=== PATIENT | male | born 1955 | race Caucasian/White ===

== ENCOUNTER 2019-07-21 12:39 | Emergency (ER) | payer BC ==
[2019-07-21 14:20] LABS: BASOPHILS % (AUTO) 0.5 %; EOSINOPHILS % (AUTO) 0.3 %; HGB - HEMOGLOBIN 14.7 g/dL (14.0-18.0); LYMPHOCYTES # (AUTO) 1.5 10^3/uL (1.5-3.5); LYMPHOCYTES % (AUTO) 19.7 %; MEAN CORPUSCULAR HEMOGLOBIN 30.9 pg (27.0-31.0); MEAN CORPUSCULAR HGB CONC 34.6 g/dL (32.0-36.0); MEAN CORPUSCULAR VOLUME 89.5 fL (80.0-94.0); MONOCYTES # (AUTO) 0.5 10^3/uL (0.0-1.0); MONOCYTES % (AUTO) 6.5 %; NEUTROPHILS # (AUTO) 5.4 10^3/uL (1.5-6.6); NEUTROPHILS % (AUTO) 72.7 %; PLT - PLATELET COUNT 151 10^3/uL (130-450); RED BLOOD COUNT 4.75 10^6/uL (4.70-6.10); RED CELL DISTRIBUTION WIDTH 12.2 % (12.0-15.0); WHITE BLOOD COUNT 7.4 x10^3/uL (4.8-10.8)
--- NOTE | 2019-07-21 14:21 | ED Physician Documentation ---
PD HPI SYNCOPE - Stated complaint Stated Complaint: DIZZINESS - Chief complaint Chief Complaint: Neuro - History obtained from History obtained from: Patient - History of Present Illness Witnessed: Witnessed, Unwitnessed Timing - onset: Today Duration: Seconds Preceding symptoms: Diaphoresis, Light headed, Generalized weakness. No: Headache, Vision changes, Chest pain, Palpitations, Dyspnea, Abdominal pain Associated symptoms: Palpitations (did feel like heart was fast briefly as he was feeling lightheaded.). No: Headache, Chest pain Contributing factors: Decreased PO intake (he says he had not eaten this morning, but did feel he had usual PO fluids, which is coffee in morning and not much fluid itself. No recent illness. Had not slept well for few nights while housesitting a friends dog, that was noisy.), Just stood up (he stood up or was standing up when the episodes occurred. No symptoms sitting at rest.). No: Recent med change, Noxious stimulae Injury occurred: No: Fell Similar symptoms before: Has not had sx before Recently seen: Not recently seen Review of Systems Constitutional: denies: Fever, Chills Nose: denies: Rhinorrhea / runny nose, Congestion Throat: denies: Sore throat Respiratory: denies: Cough GI: denies: Abdominal Pain, Nausea, Vomiting, Diarrhea Skin: denies: Rash, Lesions Musculoskeletal: denies: Neck pain PD PAST MEDICAL HISTORY - Past Medical History Past Medical History: Yes Cardiovascular: Valve disorder (aortic stenosis and regurg. being followed for few years. Last ECHO was Apr 2019 and had peak gradient 20s and aortic root 4 cm. ) Respiratory: None Neuro: None Endocrine/Autoimmune: None - Past Surgical History Past Surgical History: Yes Ortho: Shoulder arthroplasty Cardiovascular: Valve replacement - Present Medications Home Medications: Ambulatory Orders Medication Instructions Recorded Confirmed No Known Home Medications 07/21/19 07/21/19 - Allergies Allergies/Adverse Reactions: Allergies Allergy/AdvReac Type Severity Reaction Status Date / Time No Known Drug Allergies Allergy Verified 07/21/19 12:57 - Social History Does the pt smoke?: No Smoking Status: Never smoker Does the pt drink ETOH?: No Does the pt have substance abuse?: No - Family History Family history: reports: CAD, DM. denies: Sudden , Venous thromboembolism PD ED PE NORMAL - Vitals Vital signs reviewed: Yes - General General: Alert and oriented X 3, No acute distress, Well developed/nourished - HEENT HEENT: Atraumatic, PERRL, EOMI, Moist mucous membranes, Pharynx benign - Neck Neck: Supple, no meningeal sign, No adenopathy - Cardiac Cardiac: RRR, No rub, Strong equal pulses, Other (2/6 murmur left chest radiating to neck.) - Respiratory Respiratory: Clear bilaterally - Abdomen Abdomen: Normal bowel sounds, Soft, Non tender, Non distended Results - Vitals Vitals: Vital Signs - 24 hr 07/21/19 07/21/19 07/21/19 12:55 15:00 15:30 Temperature 37.2 C Heart Rate 76 55 L 63 Respiratory 16 18 16 Rate Blood Pressure 146/77 H 113/72 126/67 O2 Saturation 97 96 96 07/21/19 07/21/19 07/21/19 16:00 17:00 17:48 Temperature 36.9 C Heart Rate 66 55 L 70 Respiratory 16 16 16 Rate Blood Pressure 115/71 120/73 118/72 O2 Saturation 96 95 Oxygen O2 Source Room air - EKG (time done) 12:58 Rate: Rate (enter#) (70) Rhythm: NSR [place]: Normal Intervals: Normal [place] QRS: Normal Ischemia: Normal ST segments. No: ST elevation c/w ischemia, ST depression - Labs Labs: Laboratory Tests 07/21/19 07/21/19 07/21/19 14:15 14:15 14:15 WBC 7.4 RBC 4.75 Hgb 14.7 Hct 42.5 MCV 89.5 MCH 30.9 MCHC 34.6 RDW 12.2 Plt Count 151 MPV 11.0 Neut # (Auto) 5.4 Lymph # (Auto) 1.5 [place] # (Auto) 0.5 Eos # (Auto) 0.0 Baso # (Auto) 0.0 Absolute Nucleated RBC 0.00 Nucleated RBC % 0.0 Sodium 138 Potassium 4.4 Chloride 104 Carbon Dioxide 26 Anion Gap 8.0 BUN 15 Creatinine 1.1 Estimated GFR (MDRD) 68 L Glucose 124 H Calcium 9.1 Total Bilirubin 0.7 AST 27 ALT 31 Alkaline Phosphatase 46 Troponin I High Sens 6.2 B-Natriuretic Peptide Total Protein 7.1 Albumin 4.2 Globulin 2.9 Albumin/Globulin Ratio 1.4 Lipase 48 01/29/20 14:15 WBC RBC Hgb Hct MCV MCH MCHC RDW Plt Count MPV Neut # (Auto) Lymph # (Auto) [place] # (Auto) Eos # (Auto) Baso # (Auto) Absolute Nucleated RBC Nucleated RBC % Sodium Potassium Chloride Carbon Dioxide Anion Gap BUN Creatinine Estimated GFR (MDRD) Glucose Calcium Total Bilirubin AST ALT Alkaline Phosphatase Troponin I High Sens B-Natriuretic Peptide 58 Total Protein Albumin Globulin Albumin/Globulin Ratio Lipase - Rads (name of study) ECHO Radiology: Prelim report reviewed (no acute process seen. ), See rad report chest xray Radiology: Prelim report reviewed (normal), See rad report PD MEDICAL DECISION MAKING - ED course Complexity details: reviewed results (postural lightheaded without vertigo. No recent illness. Does have murmur. Consider if it has gotten tight enough to limit outward flow, given poor sleep and underhydration.), re-evaluated patient (he feels better with liter IV fluid. Heart monitor without ectopy nor dysrhythmia. ), considered differential (tired and likely underhydrated given his fondness for mainly coffee to drink (3 daily) and not much fluid. However, not a clear cause of symptoms, and he does have murmur, so concern for outflow limitation and subsequent near syncope. Will get results from [place] on last ECHO (in 2018) If other labs okay, would be inclined to get ECHO to see if correlates with near syncope symptoms.), d/w patient Departure - Departure Disposition: 01 Home, Self Care Clinical Impression: Near syncope Aortic stenosis Qualifiers: Cardiac valve disease etiology: etiology unspecified Qualified Code(s): I35.0 - Nonrheumatic aortic (valve) stenosis Condition: Stable Record reviewed to determine appropriate education?: Yes Instructions: ED Near Syncope Unkn Comments: Your aortic stenosis has progressed since the echocardiogram at the [place] in 2018. It does not at the critical level at this point. It may be slightly symptomatic related to under hydration. Stay well-hydrated. Sleep well. Call your manager social media to update him on the echo findings and your symptoms and see when they want to follow-up. The salas parts of the echocardiogram are the peak gradient across the valve being 26 (compared to 20 previously). The ventricle did not look enlarged. The other thing to evaluate is the aortic root being 4.4 cm (compared to 4 cm in 2018). Your blood tests and EKG and heart rhythm are normal. Follow-up with your primary care if you have continued lightheaded episodes despite good hydration. Return here if worse symptoms overall. Discharge Date/Time: 07/21/19 17:56
--- NOTE | 2019-07-21 14:30 | XRAY Report ---
Reason: Chest pain Procedure Date: 07/21/2019 Accession Number: [id number] / [id number] Procedure: XR - Chest 1 View X-Ray CPT Code: 78374 Final Report FULL RESULT: EXAM: CHEST RADIOGRAPHY EXAM DATE: 07/21/2019 02:25 PM. CLINICAL HISTORY: Chest pain. COMPARISON: None. TECHNIQUE: 1 view. FINDINGS: LUNGS: Minimal elevation of the right diaphragm. The lungs are clear. PLEURA: No significant pleural effusion. No clinically significant pneumothorax. MEDIASTINUM: The cardiomediastinal silhouette is unremarkable. BONES: No suspicious osseous lesions. IMPRESSION: No acute cardiopulmonary abnormality. RADIA
[2019-07-21 14:32] LABS: ALBUMIN 4.2 g/dL (3.2-5.5); ALBUMIN/GLOBULIN RATIO 1.4 (1.0-2.2); BILIRUBIN,TOTAL 0.7 mg/dL (0.2-1.0); CALCIUM 9.1 mg/dL (8.5-10.3); CREATININE 1.1 mg/dL (0.6-1.2); TOTAL PROTEIN 7.1 g/dL (6.7-8.2)
[2019-07-21] MEDS ORDERED: SODIUM CHLORIDE 0.9% 1,000 ML IV ONE (14:56)
[2019-07-21 17:48] VITALS: BP 118/72
== END 2019-07-21 17:56 | disposition home or self-care (01) ==
LOC: ED 12:39
DX: R55 Syncope and collapse (principal); I35.2 Nonrheumatic aortic (valve) stenosis with insufficiency; I77.819 Aortic ectasia, unspecified site; Z82.49 Family history of ischemic heart disease and other diseases of the circulatory system
CPT/HCPCS: 36415; 71045; 80053; 83690; 83880; 84484; 85025; 93005; 93308; 96360; 99284

== ENCOUNTER 2020-12-11 11:31 | Emergency (ER) | payer BC, OTHER ==
[2020-12-11 11:47] VITALS: BP 148/75
--- NOTE | 2020-12-11 12:08 | XRAY Report ---
PROCEDURE: Ankle 3 View LT INDICATIONS: trauma TECHNIQUE: 3 views of the ankle were acquired. COMPARISON: None. FINDINGS: Bones: Cortical irregularity involving lateral cortex of lateral malleolus is seen suggestive of a no ndisplaced and slightly comminuted fracture in this area. There is also comminuted and minimally disp laced fracture involving calcaneus weightbearing portion. Fracture line is seen extending to both sup erior and inferior cortices. No other fracture or dislocation is seen. Ankle mortise is normally ali gned. No suspicious bony lesions. Soft tissues: Soft tissue swelling over lateral malleolus is seen. No tibiotalar joint effusion. Ac hilles tendon appears normal. IMPRESSION: 1. Acute minimally displaced calcaneal fracture as above. 2. Acute nondisplaced lateral malleolus fracture with overlying soft tissue swelling. Reviewed by: Joce Nelson MD on 12/11/2020 12:06 PM PDT Approved by: Joce Nelson MD on 12/11/2020 12:06 PM PDT Station ID: [id number]
--- NOTE | 2020-12-11 14:08 | ED Physician Documentation ---
PD HPI LOWER EXT INJURY - Stated complaint Stated Complaint: LT ANKLE INJ - Chief complaint Chief Complaint: Trauma Ext - History obtained from History obtained from: Patient - History of Present Illness PD HPI LOW EXT INJURY LOCATION: Left, Ankle, Foot Type of injury: Fall (step ladder and he was about 8 feet up, when ladder tipped and he jumped off, landing onto feet, left mostly. Pain abruptly in left heel/ankle.) Where injury occurred: Home. No: Work Timing - onset: Today Timing - details: Abrupt onset, Still present Worsened by: Moving, Other (weight bearing) Associated symptoms: Swelling. No: Weakness, Numbness Similar symptoms before: Has not had sx before Recently seen: Not recently seen Review of Systems Skin: denies: Abrasion (s), Laceration (s) Musculoskeletal: denies: Neck pain, Back pain Neurologic: denies: Focal weakness, Numbness PD PAST MEDICAL HISTORY - Past Medical History Cardiovascular: Valve disorder (aortic stenosis and regurg. being followed for few years. Last ECHO was Apr 2019 and had peak gradient 20s and aortic root 4 cm. ) Respiratory: None Neuro: None Endocrine/Autoimmune: None - Past Surgical History Past Surgical History: Yes Ortho: Shoulder arthroplasty Cardiovascular: Valve replacement - Present Medications Home Medications: Ambulatory Orders Medication Instructions Recorded Confirmed HYDROcod/ACETAM 5/325 [Kyle 5/325] 1 ea PO Q6H PRN #20 tablet 12/11/20 Naproxen [EC-Naproxen] 500 mg PO BID #20 12/11/20 - Allergies Allergies/Adverse Reactions: Allergies Allergy/AdvReac Type Severity Reaction Status Date / Time No Known Drug Allergies Allergy Verified 12/11/20 11:47 - Social History Does the pt smoke?: No Smoking Status: Never smoker Does the pt drink ETOH?: No Does the pt have substance abuse?: No PD ED PE NORMAL - Vitals Vital signs reviewed: Yes - General General: Alert and oriented X 3, No acute distress, Well developed/nourished - Back Back: No spinal TTP - Derm Derm: Normal color, Warm and dry - Extremities Extremities: Other (left heel and ankle with effusion and swelling. Achilles feels intact. Tenderness mainly at heel and lateral malleolus. Normal color and cap refill in toes. ) - Neuro Neuro: Alert and oriented X 3, No motor deficit, No sensory deficit, Normal speech Results - Vitals Vitals: Vital Signs - 24 hr 12/11/20 11:45 Temperature 35.9 C L Heart Rate 60 Respiratory 20 Rate Blood Pressure 148/75 H O2 Saturation 95 Oxygen O2 Source Room air - Rads (name of study) ankle left Radiology: Prelim report reviewed (calcaneal and fibular fracture), See rad report ankle CT Radiology: Prelim report reviewed (comminuted calcaneal fracture, displaced. Distal fibular fracture. ), See rad report Procedures - Splint (location) left ankle Splint applied by: Tech Type of splint: Fiberglass, Posterior, Stirrup Other: Patient tolerated well, No complications, Neurovascular intact, Crutches provided (patient give written Rx for knee scooter.) PD MEDICAL DECISION MAKING - ED course Complexity details: reviewed results, considered differential, d/w patient Departure - Departure Disposition: 01 Home, Self Care Clinical Impression: Calcaneal fracture Qualifiers: Encounter type: initial encounter Calcaneus location: body Fracture type: closed Fracture alignment: displaced Laterality: left Qualified Code(s): S92.012A - Displaced fracture of body of left calcaneus, initial encounter for closed fracture Fracture of distal end of fibula Qualifiers: Encounter type: initial encounter Fracture type: closed Fracture morphology: unspecified fracture morphology Laterality: left Qualified Code(s): S82.832A - Other fracture of upper and lower end of left fibula, initial encounter for closed fracture Fall from ladder Qualifiers: Encounter type: initial encounter Qualified Code(s): W11.XXXA - Fall on and from ladder, initial encounter Condition: Stable Record reviewed to determine appropriate education?: Yes Instructions: ED Fx Ankle General Follow-Up: Luciano Sandoval MD [Provider Admit Priv/Credential] - Prescriptions: Naproxen [EC-Naproxen] 500 mg PO BID #20 HYDROcod/ACETAM 5/325 [Kyle 5/325] 1 ea PO Q6H PRN #20 tablet PRN Reason: Pain Comments: You have a comminuted (many pieces) fracture of the calcaneus/heel bone. There is also a nondisplaced fracture of the end of the fibula which is at the outside part of the ankle. Ice elevate and rest the foot and ankle often over the next several days to week to reduce swelling. This type of injury tends to swell a lot. Crutches and nonweightbearing. Also consider knee scooter form mobility as needed. Anti-inflammatory such as naproxen twice daily with food over the next 7 to 10 days. To that add Tylenol or hydrocodone as needed for degree of further pain. Follow-up with orthopedics, call today or tomorrow for an appointment for the end of this week or next week. They would give this time for the swelling to go down before considering any surgical intervention which is a good possibility for this fracture. Often this is a week or so. However you do want a follow-up with them and the near term for further discussion. Forms: Activity restrictions Discharge Date/Time: 12/11/20 15:07
--- NOTE | 2020-12-11 14:35 | CT Report ---
PROCEDURE: LOWER EXTREMITY WO - LT INDICATIONS: fracture fibula and calcaneua TECHNIQUE: Noncontrast 3 mm axial sections acquired of the left ankle and foot, with coronal and sagittal reform ats. COMPARISON: Ankle radiograph dated 12/11/2020. FINDINGS: Image quality: Excellent. Bones: As seen on ankle radiograph, there is comminuted and slightly oblique fractures involving pos terior lateral portion of lateral malleolus with fracture line extending to lateral malleolus tip. Sl ight posterior lateral displacement at fracture site is seen with up to 2.2 mm diastases at fracture site. There is also acute comminuted fractures involving weightbearing portion of anterior and mid calcaneu s with fracture lines extending to both superior and inferior cortices. There is up to 6 mm depressio n involving at anterior superior calcaneal fracture site. Up to 6 mm diastases at its inferior calcan eal fracture site is seen. Medial and laterally displaced calcaneal fracture fragments are seen. No o ther fracture or dislocation is seen. Soft tissues: Plantar sclerosis is grossly intact. Achilles tendon is intact. There is suggestion of moderate tibio talar and subtalar joint effusion. A few tiny displaced fractured fragments from medial lateral malle olus and from posterior portion of calcaneus are seen scattered in posterior subtalar joint and poste rior tibiotalar joint space. IMPRESSION: 1. Acute comminuted and slightly displaced lateral malleolus fracture as described above. 2. Extensive acute comminuted and displaced calcaneal fracture as above. 3. Moderate amount of joint effusion in tibiotalar joint and subtalar joint with small calcified frac tured fragments seen in posterior tibiotalar and subtalar joint space. No full-thickness ankle tendon rupture is seen. Reviewed by: Joce Nelson MD on 12/11/2020 2:34 PM PDT Approved by: Joce Nelson MD on 12/11/2020 2:34 PM PDT Station ID: [id number]
== END 2020-12-11 15:07 | disposition home or self-care (01) ==
LOC: ED 11:31
DX: S92.012A Displaced fracture of body of left calcaneus, initial encounter for closed fracture (principal); S82.62XA Displaced fracture of lateral malleolus of left fibula, initial encounter for closed fracture; W17.89XA Other fall from one level to another, initial encounter; Y92.009 Unspecified place in unspecified non-institutional (private) residence as the place of occurrence of the external cause
CPT/HCPCS: 29515; 99284